=== PATIENT | male | born 1995 | race Caucasian/White ===

== ENCOUNTER 2016-11-20 09:32 | Emergency (ER) | payer OTHER ==
[2016-11-20 10:44] VITALS: BP 125/71
--- NOTE | 2016-11-20 11:37 | UC ---
Respiratory Complaint HPI - HPI Summary HPI Summary: 20 yo male with a history of asthma as a child presents with sinus pressure/ pain and post nasal drip x 2weeks no fever or chills now with severe cough and wheezing at times no CP or SOB - History of Current Complaint Chief Complaint: UCGeneralIllness Stated Complaint: COUGH,CONGESTION Time Seen by Provider: 11/20/16 11:17 Hx Obtained From: Patient Onset/Duration: Gradual Onset, Lasting Weeks Severity Initially: Mild Severity Currently: Moderate Pain Intensity: 4 Pain Scale Used: 0-10 Numeric Character: Cough: Nonproductive Aggravating Factors: Nothing Alleviating Factors: Nothing Associated Signs And Symptoms: Positive: Wheezing, Nasal Congestion, Hoarseness , Sinus Discomfort - Allergies/Home Medications Allergies/Adverse Reactions: Allergies Allergy/AdvReac Type Severity Reaction Status Date / Time No Known Allergies Allergy Verified 11/20/16 10:39 PMH/Surg Hx/FS Hx/Imm Hx Previously Healthy: Yes Respiratory History Of: Reports: Asthma - Surgical History Surgical History: Yes Surgery Procedure, Year, and Place: TONSILLECTOMY, APPENDECTOMY - Family History Known Family History: Positive: Diabetes - Social History Alcohol Use: None Substance Use Type: None Smoking Status (MU): Never Smoked Tobacco Review of Systems Constitutional: Negative Skin: Negative Eyes: Negative ENT: Nasal Discharge Respiratory: Cough Cardiovascular: Negative Gastrointestinal: Negative Genitourinary: Negative Motor: Negative Neurovascular: Negative Musculoskeletal: Negative Neurological: Negative Psychological: Negative All Other Systems Reviewed And Are Negative: Yes Physical Exam Triage Information Reviewed: Yes Appearance: Well-Appearing, No Pain Distress, Well-Nourished Vital Signs: Initial Vital Signs Temp 99.1 F 11/20/16 10:40 Pulse 62 11/20/16 10:40 Resp 16 11/20/16 10:40 BP 125/71 11/20/16 10:40 Pulse Ox 98 11/20/16 10:40 Eyes: Positive: Conjunctiva Clear, Conjunctiva Inflamed, Discharge ENT: Positive: Hearing grossly normal, Nasal congestion, Nasal drainage, Other: - bilat max sinus tenderness. Negative: TMs normal, TM bulging, Trismus, Muffled/hoarse voice Neck: Positive: Supple, Nontender Respiratory: Positive: No respiratory distress, No accessory muscle use, Wheezing - with forced expiration. Negative: Respiratory distress, Decreased breath sounds Cardiovascular: Positive: RRR, No Murmur Musculoskeletal: Positive: Strength Intact, ROM Intact Neurological Exam: Normal Neurological: Positive: Alert Psychological Exam: Normal Skin Exam: Normal UC Diagnostic Evaluation - Laboratory O2 Sat by Pulse Oximetry: 98 - normal/not hypoxic Respiratory Course/Dx - Differential Dx/Diagnosis Provider Diagnoses: acute sinusitis. acute bronchitis Discharge - Discharge Plan Condition: Stable Disposition: HOME Prescriptions: Albuterol HFA INHALER* [Ventolin HFA Inhaler*] 2 puff INH QID #1 mdi Amoxicillin (*) 875 mg PO BID #20 tab Prednisone [Deltasone] 40 mg PO DAILY #10 tab Patient Education Materials: Acute Bronchitis (ED) Referrals: MARLENI Mclean [Primary Care Provider] - Additional Instructions: rest fluids tylenol recheck in 4-5 days if not better
== END 2016-11-20 11:37 | disposition home or self-care (01) ==
LOC: UCCORT 09:32
DX: J20.9 Acute bronchitis, unspecified (principal); J01.90 Acute sinusitis, unspecified; J45.909 Unspecified asthma, uncomplicated
CPT/HCPCS: 99212; G0463

== ENCOUNTER 2018-05-22 13:12 | Emergency (ER) | payer SELFPAY ==
[2018-05-22 14:47] VITALS: BP 139/81
--- NOTE | 2018-05-22 15:25 | RAD ---
INDICATION: Left knee pain COMPARISON: August 11, 2010 TECHNIQUE: AP, lateral, and oblique views were obtained. FINDINGS: The bony structures, joint spaces, and soft tissues are normal for age. IMPRESSION: NEGATIVE EXAMINATION.
--- NOTE | 2018-05-22 16:09 | UC ---
Knee Pain HPI - HPI Summary HPI Summary: Patient to the urgent care today with continued left knee pain and swelling. Patient had injured his knee while playing baseball sliding into a base about 2 weeks ago patient has a healing wound on his left knee patient has some tenderness medial side of left knee - History of Current Complaint Hx Obtained From: Patient Onset/Duration: Sudden Onset, Lasting Weeks - 2 Severity Initially: Moderate Severity Currently: Mild Location Of Injury: left knee Pain Intensity: 0 Character: Aching Aggravating Factor(s): Movement Associated Signs And Symptoms: Positive: Swelling Able to Bear Weight: Yes <Katrina Orr - Last Filed: 05/22/18 16:04> <Stephan Gallego - Last Filed: 05/22/18 17:28> - History of Current Complaint Chief Complaint: UCLowerExtremity Stated Complaint: KNEE INJURY Time Seen by Provider: 05/22/18 14:56 - Allergies/Home Medications Allergies/Adverse Reactions: Allergies Allergy/AdvReac Type Severity Reaction Status Date / Time No Known Allergies Allergy Verified 05/22/18 14:47 PMH/Surg Hx/FS Hx/Imm Hx Previously Healthy: Yes - Surgical History Surgical History: Yes Surgery Procedure, Year, and Place: TONSILLECTOMY, APPENDECTOMY - Family History Known Family History: Positive: Diabetes - Social History Occupation: Employed Part-time, Student Lives: With Family Alcohol Use: Occasionally Substance Use Type: None Smoking Status (MU): Never Smoked Tobacco <Katrina Orr - Last Filed: 05/22/18 16:04> Review of Systems Constitutional: Negative Skin: Other - healing abrasion left knee- Eyes: Negative ENT: Negative Respiratory: Negative Cardiovascular: Negative Gastrointestinal: Negative Genitourinary: Negative Motor: Negative Neurovascular: Negative Musculoskeletal: Arthralgia - left knee pain Neurological: Negative Psychological: Negative Is Patient Immunocompromised?: No All Other Systems Reviewed And Are Negative: Yes <Katrina Orr - Last Filed: 05/22/18 16:04> Physical Exam Triage Information Reviewed: Yes Appearance: Well-Appearing, No Pain Distress, Well-Nourished Vital Signs: Initial Vital Signs Temp 98.1 F 05/22/18 14:43 Pulse 93 05/22/18 14:43 Resp 18 05/22/18 14:43 BP 139/81 05/22/18 14:43 Pulse Ox 99 05/22/18 14:43 Vital Signs Reviewed: Yes Eye Exam: Normal Eyes: Positive: Conjunctiva Clear ENT Exam: Normal ENT: Positive: Normal ENT inspection, Hearing grossly normal. Negative: Trismus , Muffled voice, Hoarse voice Dental Exam: Normal Neck exam: Normal Neck: Positive: Supple, Nontender, No Lymphadenopathy Respiratory Exam: Normal Respiratory: Positive: Chest non-tender, No respiratory distress, No accessory muscle use Cardiovascular Exam: Normal Cardiovascular: Positive: RRR, Pulses Normal, Brisk Capillary Refill Musculoskeletal Exam: Normal Musculoskeletal: Positive: Strength Intact, ROM Intact, No Edema Neurological Exam: Normal Neurological: Positive: Alert, Muscle Tone Normal Psychological Exam: Normal Skin Exam: Other Skin: Positive: significant lesion(s) - healing wound left knee--no evidence of infection, Other <Katrina Orr - Last Filed: 05/22/18 16:04> Vital Signs: Initial Vital Signs Temp 98.1 F 05/22/18 14:43 Pulse 93 05/22/18 14:43 Resp 18 05/22/18 14:43 BP 139/81 05/22/18 14:43 Pulse Ox 99 05/22/18 14:43 <Stephan Gallego - Last Filed: 05/22/18 17:28> Knee Pain Course/Dx - Course Course Of Treatment: soap and water wash, tylenol, ibuprofen for pain, follow with orthpedic MD - Differential Dx/Diagnosis Provider Diagnoses: left knee contusion and healing abrasion <Katrina Orr - Last Filed: 05/22/18 16:04> Discharge - Sign-Out/Discharge Documenting (check all that apply): Discharge/Admit/Transfer - Billing Disposition and Condition Condition: STABLE Disposition: Home <Katrina Orr - Last Filed: 05/22/18 16:04> - Billing Disposition and Condition Condition: STABLE Disposition: Home <Stephan Gallego - Last Filed: 05/22/18 17:28> - Discharge Plan Condition: Stable Disposition: HOME Patient Education Materials: Abrasion (ED), Knee Pain (ED) Referrals: Kylee Zaragoza MD [Medical Doctor] - 3 Days No Primary Care Phys,NOPCP [Primary Care Provider] - Additional Instructions: Per institutional requirements, I have reviewed the chart, however, I was not consulted specifically or made aware of this patient by the above midlevel provider. I did not personally evaluate, interact with , or disposition this patient.
== END 2018-05-22 16:00 | disposition home or self-care (01) ==
LOC: UCEAST 13:12
DX: S80.02XD Contusion of left knee, subsequent encounter (principal); S80.212D Abrasion, left knee, subsequent encounter; X58.XXXD Exposure to other specified factors, subsequent encounter
CPT/HCPCS: 99211; G0463